=== PATIENT | female | born 1975 | race Caucasian/White ===

== ENCOUNTER 2019-07-26 05:25 | Inpatient (IN) ==
--- NOTE | 2019-07-16 12:52 | Communication Note ---
Date of Service: July 16, 2019 I called the patient to discuss her concerns regarding COVID testing and upcoming surgery. She did not answer the telephone. I left a message and call back number on the voicemail.
--- NOTE | 2019-07-16 14:55 | PAT Medication Instructions ---
Medication Instructions Date of Service July 16, 2019 Home Medications cholecalciferol (vitamin D3) 50 mcg (2,000 unit) tablet 2,000 units PO QAM ibuprofen 800 mg PO TID PRN lisinopril 40 mg PO QAM omeprazole 20 mg PO QAM ASK your surgeon for instructions ibuprofen 800 mg PO TID PRN DO NOT take the morning of surgery cholecalciferol (vitamin D3) 50 mcg (2,000 unit) tablet 2,000 units PO QAM lisinopril 40 mg PO QAM Take morning of surgery With a small sip of water, OTHERWISE NOTHING TO EAT OR DRINK AFTER MIDNIGHT: omeprazole 20 mg PO QAM Other Notes If you have any questions please call us at [phone] or [phone] or [phone] or [phone]
--- NOTE | 2019-07-17 12:14 | Anesthesiology Consultation ---
Date of Service July 17, 2019 Assessment & Plan (1) Encounter for pre-operative examination: Chart Review Chart Review: Acceptable Risk for Surgery (pending 07/22 covid testing ) and Patient seen in Pre Admission Testing - Check BSG AM DOS Pt scheduled for Covid testing 07/22. Was working at [employer] (x 3-4 days) but will be off until after surgery. Educated patient on importance of quarantine and social distancing both personally and for household members from time of Covid test to surgery date Seen by PCP 07/17/19= Aware of upcoming surgery for adrenalectomy. Pt following with endocrine. Pt having increased anxiety- given Clonazepam PRN until after surgery. Teaching & Discussion Pre-Anesthesia Teaching/Discussion Notes: Instructed NPO after midnight before surgery,except medications with 15 cc of water. Medication instructions provided according to the PAT guidelines. History Surgery Operation Date: 07/26/19 07:30 Proposed Procedures p Right Robotic Adrenalectomy - Bart Cannon, DO Height/Weight Height: 5 ft 7.5 in Weight: 126.8 kg Allergies Allergy/AdvReac Type Severity Reaction Status Date / Time No Known Allergies Allergy Verified 07/17/19 09:35 Medications Home Medications Medication Instructions Recorded Confirmed Last Taken cholecalciferol (vitamin D3) 50 2,000 units PO QAM 02/12/19 07/17/19 Unknown mcg (2,000 unit) tablet ibuprofen 800 mg PO TID PRN 07/11/19 07/17/19 Unknown lisinopril 40 mg PO QAM 07/11/19 07/17/19 Unknown omeprazole 20 mg PO QAM 07/11/19 07/17/19 Unknown clonazepam 0.5 mg tablet 0.5 mg PO BID #60 tab 07/17/19 07/17/19 Unknown Past Medical History Medical History Adrenal adenoma 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- getting 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 preop- endocri nologist is arranging with surgeon Anxiety Arthritis Diabetes Stable and controlled- sugars can fluctuate- unsure if due to adrenal gland GERD (gastroesophageal reflux disease) Stable and controlled Herniated lumbar intervertebral disc L4 and L5- chronic back pain - getting epidural injection on 07/19 Hypertension Exercise / Class Metabolic Activity II 4-5 Yardwork/Stairs/Walk up hill (one flight stairs- no chest pain or SOB ) Past Family History Family History Father Diabetes Hypertension Grandfather (Paternal) Diabetes Hypertension Grandmother (Paternal) Diabetes Aunt Breast cancer Other Heart disease Denies family history of Ovarian cancer Prostate cancer Myocardial infarction Lung cancer Colorectal cancer Stroke Past Surgical History Surgical History H/O: hysterectomy OVARIES REMAIN Hx of tonsillectomy S/P cholecystectomy Past Anesthesia History No Hx of Anesthesia Complications and No Family Hx of Anesthesia Complications History of PONV No Hx of PONV and No Hx of Motion Sickness Social History Smoking Status: Former smoker tobacco type: cigarettes Do You Dip or Chew Tobacco: No Smoking End Date: QUIT 2 YRS AGO Hx Alcohol Use: Yes Alcohol type: hard liquor alcohol intake frequency: holidays/special occasions only Hx Substance Use: No Review of Systems Patient denies chest pain, shortness of breath, dyspnea on exertion, cough, wheezing, palpitations. No hx of seizures, stroke, HI, apnea/snoring. No hx of blood clots or blood transfusions Physical Exam Vital Signs VITALS BP 119/78 P 100 TEMP 98.2 SP02 96% RESP 16 Constitutional + morbidly obese; no acute distress ENMT Mouth: no TMJ clicking Thyromental Distance: > or= 3.5 Finger Breadths (3.5) Mallampati Class: I Missing molars Capped bottom left molar Neck + thick neck; neck extension not limited Respiratory normal respiratory effort; no respiratory distress Auscultation: lungs clear to auscultation bilaterally; no wheezes Cardiovascular Rate/Rhythm: regular rate and regular rhythm Heart Sounds: no murmur Vessels: no carotid bruit Musculoskeletal Spine: no pain with cervical ROM Neurologic moves all extremities Psychiatric Orientation: alert Testing Laboratory Results 07/17/19 11:55 07/17/19 11:55 Urine Color Yellow 07/17/19 11:55 Urine Appearance Clear (Clear) 07/17/19 11:55 Urine pH 5.0 (4.5-7.5) 07/17/19 11:55 Ur Specific [place] 1.026 (1.000-1.030) 07/17/19 11:55 Urine Protein Negative (Negative) 07/17/19 11:55 Urine Glucose (UA) 2+ (Negative) H 07/17/19 11:55 Urine Ketones Negative (Negative) 07/17/19 11:55 Urine Nitrite Negative (Negative) 07/17/19 11:55 Ur Leukocyte Esterase Negative (Negative) 07/17/19 11:55 Blood Type O Positive 07/17/19 11:55 Antibody Screen NEGATIVE 07/17/19 11:55 Electrocardiogram Date: 02/12/19 SR at 65 bpm. Possible septal infarct (had subsequent negative stress test) Chest X-Ray Date: 07/17/19 Findings: + NAD Stress Test Date: 03/20/19 Type: DSE Resting EF: 55.8% Resting LV Function: normal Resting RWMA: + none Valvular Disease: no significant valvular disease Negative DSE and EKG for myocardiac ischemia at 89% MPHR.
--- NOTE | 2019-07-17 12:35 | XRay Report ---
XR chest Pre-admission PA/Lat CLINICAL HISTORY: Preoperative chest COMPARISON STUDY: No previous studies for comparison. FINDINGS: The cardiac and mediastinal contours are normal. There is no evidence of focal pulmonary co nsolidation. There is no evidence of failure. No pleural effusions are visualized.[ IMPRESSION: No active disease in the chest. ACT 112: Negative or not required by law. Electronically signed by: Juan Harmon M.D. 07/17/2019 12:34 PM
[2019-07-17 13:47] LABS: Basophils # (auto) 0.02 K/uL (0-0.2); Basophils % (auto) 0.3 %; Eosinophils # (auto) 0.02 K/uL (0-0.5); Eosinophils % (auto) 0.3 %; Hematocrit (blood only) 42.6 % (37-47); Hemoglobin 14.5 g/dL (12.0-16.0); Immature Granulocytes # (auto) 0.01 K/uL (0.00-0.02); Immature Granulocytes % (auto) 0.1 %; Lymphocytes # (auto) 2.45 K/uL (1.2-3.4); Lymphocytes % (auto) 34.1 %; Mean Corpuscular Hemoglobin 29.8 pg (25-34); Mean Corpuscular Volume 87.7 fL (80-100); Mean Platelet Volume 11.5 fL (7.4-10.4); Monocytes # (auto) 0.47 K/uL (0.11-0.59); Monocytes % (auto) 6.5 %; Neutrophils # (auto) 4.21 K/uL (1.4-6.5); Neutrophils % (auto) 58.7 %; Platelet Count 293 K/uL (130-400); RDW Coefficient of Variation 13.4 % (11.5-14.5); RDW Standard Deviation 42.9 fL (36.4-46.3); Red Blood Count 4.86 M/uL (4.2-5.4); White Blood Count 7.18 K/uL (4.8-10.8)
[2019-07-17 14:03] LABS: BUN Creatinine Ratio 15.5 (10-20); Calcium 9.1 mg/dl (8.5-10.1); Creatinine Clr Calc Pharmacy 125.7 ml/min; Est GFR (African American) 105.7; Est GFR (Non-African American) 91.2; Potassium 3.8 mmol/L (3.5-5.1)
[2019-07-17 14:30] LABS: Appearance Urine Clear (Clear); Bilirubin Urine Negative (Negative); Blood Urine Negative (Negative); Color Urine Yellow; Glucose Urine UA 2+ (Negative); Ketones Urine Negative (Negative); Leukocyte Esterase Urine Negative (Negative); Nitrite Urine Negative (Negative); Protein Urine Negative (Negative); Specific Gravity Urine 1.026 (1.000-1.030); Urobilinogen Urine Negative (Negative)
[2019-07-26] MEDS ORDERED: LR 15ML/HR IV SCH (06:00)
[2019-07-26] MEDS ORDERED: CEFAZOLIN 3000MG 72.5 ML IV SCH (06:00)
[2019-07-26] MEDS ORDERED: HYDROmorphone INJ 2 MG/ML SYR/VIAL ONE (06:34)
[2019-07-26] MEDS ORDERED: MIDAZOLAM HCL 1 MG/ML 2ML VIAL ONE (06:34)
[2019-07-26] MEDS ORDERED: fentaNYL citrate 100 MCG/2 ML VIAL ONE ×2 (06:34→11:57)
[2019-07-26] MEDS ORDERED: BUPIVACAINE 0.5 % 5 MG/1 ML MPF 30ML VIAL ONE (07:03)
--- NOTE | 2019-07-26 07:09 | History & Physical Bridge Note ---
Date of Service July 26, 2019 History & Physical Bridge Note I have examined the patient, reviewed the History & Physical and in the interval since the performance of the History & Physical I have noted the following changes of clinical significance: no changes noted
[2019-07-26] MEDS ORDERED: ONDANSETRON INJ 2 MG/ML 2 ML VIAL ONE (08:41)
[2019-07-26] MEDS ORDERED: ROCURONIUM BROMIDE 10 MG/ML 5 ML VIAL IV ONE ×2 (08:41→09:43)
[2019-07-26] MEDS ORDERED: HYDROCORTISONE SOD SUCCINATE 100 MG/2 ML VIAL ONE (08:41)
[2019-07-26] MEDS ORDERED: LIDOCAINE HCL 2% 2 ML VIAL/AMP(20MG/ML) INFIL ONE (08:41)
[2019-07-26] MEDS ORDERED: PROPOFOL IV EMULSION 10 MG/ML 20 ML VIAL IV ONE (08:41)
[2019-07-26] MEDS ORDERED: LABETALOL HCL IV 5 MG/ML 20ML IV ONE (08:56)
[2019-07-26] MEDS ORDERED: ALBUMIN HUMAN 5% 12.5 GM/250 ML VIAL IV ONE (09:04)
[2019-07-26] MEDS ORDERED: ACETAMINOPHEN 1000 MG/100 ML IV IV ONE (09:04)
[2019-07-26] MEDS ORDERED: SUGAMMADEX SODIUM 200 MG/2 ML VIAL IV ONE (09:04)
[2019-07-26] MEDS ORDERED: TISSEEL FIBRIN SEALANT 10ML TOP ONE (09:32)
[2019-07-26] MEDS ORDERED: ESMOLOL HCL INJ 10 MG/ML 10ML VIAL IV ONE (09:33)
[2019-07-26] MEDS ORDERED: SURGICEL ABSORB HEMOSTAT 2IN X 14IN TOP ONE ×2 (11:11)
[2019-07-26] MEDS ORDERED: SURGICEL FIBRILLAR HEMOSTAT 1 X 2IN TOP ONE (11:14)
[2019-07-26] MEDS ORDERED: FLOSEAL HEMOSTATIC MATRIX 10ML TOP ONE (11:19)
--- NOTE | 2019-07-26 12:50 | Post Operative Brief Note ---
PG Immediate Post Op with CF Date of Surgery July 26, 2019 Pre & Post Diagnosis Operation Date: 07/26/19 07:30 Pre-Op Diagnosis: Adrenal Adenoma Post-Op Diagnosis: Adrenal Adenoma I identified the patient and participated in the time-out.: Yes Procedure Operation Date: 07/26/19 07:30 Actual Procedures p Right Robotic Assisted Laparoscopic Adrenalectomy with extensive lysis of adhesions(Not Applicable) - Bart Cannon DO Surgeon Bart Cannon, II, DO Data Warehouse Specialist Edd Estimated Blood Loss 650 Findings Consistent with Post-Op Diagnosis Specimens Specimen Description: A. Right Adrenal Gland and adenoma Drains Altamirano Catheter (18 Fr. altamirano catheter inserted by MEGAN Hoang without difficulty. Draining clear yellow urine. Anesthesia to monitor urine output. ) and Uday-Parada Drain (10mm Flat) Anesthesia Type General Complications none Disposition Disposition: Recovery Room Overlapping Procedure I was present for: the critical portions of procedure. I was immediately available: during the entire case. Back up surgeon: was not required during procedure.
[2019-07-26] MEDS ORDERED: ePHEDrine sulfate 50 MG/ML AMP IV PRN (13:07)
[2019-07-26] MEDS ORDERED: ONDANSETRON INJ 2 MG/ML 2 ML VIAL IV PRN ×2 (13:07→18:37)
[2019-07-26] MEDS ORDERED: HYDROmorphone INJ 2 MG/ML SYR/VIAL IV PRN ×2 (13:07→14:32)
[2019-07-26] MEDS ORDERED: PROMETHAZINE HCL 12.5 MG in SODIUM CHLORIDE 0.9% 50 ML IV PRN (13:07)
[2019-07-26] MEDS ORDERED: ATROPINE SULFATE 0.1 MG/ML 10ML SYR IV PRN (13:07)
--- NOTE | 2019-07-26 13:07 | Procedure Note ---
Procedure Note Date of Service July 26, 2019 Radial arterial line placed in left wrist after induction in preparation for adrenelectomy with Dr. Cannon. Left wrist prepped with chlorhexidine and draped with sterile towels. 20 G angiocath placed under sterile technique utilizing sterile gloves, surgical hats and masks. Catheter threaded using seldinger technique with return of pulsatile, bright red blood. Site covered with occlusive dressing and taped in place. Waveform consistent with correct arterial placement. After placement, fingers of procedural hand had normal perfusion. Patient tolerated procedure well without complications. Talia placed by KEVIN Lawson under my direct supervision. Yareli Smith MD, PhD Anesthesiologist Coding
--- NOTE | 2019-07-26 13:34 | Operative Report ---
PG Post Operative Report Pre & Post Diagnosis Operation Date: 07/26/19 07:30 Pre-Op Diagnosis: Adrenal Adenoma Post-Op Diagnosis: Adrenal Adenoma I identified the patient and participated in the time-out.: Yes Procedure Operation Date: 07/26/19 07:30 Actual Procedures p Right Robotic Assisted Laparoscopic Adrenalectomy with extensive lysis of adhesions - Bart Cannon DO Surgeon Bart Cannon, II, DO French Drawer HUMA Puga Estimated Blood Loss 650 Findings Consistent with Post-Op Diagnosis Multiple significant adhesions to liver. Very large mass anterior on the adrenal gland on right Specimens Right adrenal gland with adenoma Drains 9 Fr Rolando drain 18 Fr Guzman Anesthesia Type General Complications none Disposition Disposition: Recovery Room Indications Patient with adenoma of the adrenal gland. Patient underwent workup for functional status. Patient was specifically worked up for pheochromocytoma. Risks and benefits discussed at length. Description of Procedure The patient was brought to the operative suite and placed under general endotracheal intubation anesthesia in the supine position. The patient was transferred to lateral position with the right flank exposed. The patient was placed into a flex'ed position and then placed into mild reverse Trendelenberg. At this point, the patient prepped and draped in the usual sterile fashion and a timeout was completed. Preoperative weight based antibiotics had been given. SHANTELLE's and SCD's were placed on the patient's lower extremities. A catheter was placed by nursing using sterile technique. With the time out completed the patient was flexed and the skin was marked. The lateral port site was anesthetized. A small incision was made into the skin and subcutaneous tissues. A Varess needle was selected and placed. The needle was easily moved and it was irrigated and aspirated without any issues or concerns for placement. Insufflation commenced. Once insufflated, the lateral edge of the rectus sheath was marked and anesthetized. The skin was incised and a camera port was placed. The cavity was insufflated to 15 mmHG. The laparoscopic camera was placed and the abdominal cavity inspected. No concerning features were noted. At this point, the skin was marked for port placement and 8mm working ports were placed. The skin was anesthetized down to fascia and an approx 1cm incision was made to place the 2 x 8mm ports. A 10mm and 5 mm assistant womens volleyball coach ports were also placed in similar fashion under direct visualization. The robot was positioned and docked. The camera was placed and all trocars were positioned under direct visualization. Melissa Puga was integral in port placement, camera utilization, and docking procedure. She remained in sterile attire and then proceeded to assist the remainder of the case. At this point, I transitioned to the robotic console. The patient had severe a dhesions throughout the upper quadrant especially off of the liver which was also found to be large and obscuring. These adhesions required significant time to lyse and release. Some tears in the capsule were noted due to the adhesions. Approximately 40 minutes were required in order to adequately free all of these adhesions and then place a retractor to help hold the liver. The colon was mobilized medially to expose the retroperitoneum and the area assessed. Adhesions were freed to allow mobilization. A small amount of adhesions were noted from the colon and were freed. These were dissected with blunt technique. Cautery was used to assist dissection and control bleeding. The retroperitoneal fat was assessed. The adenoma as well as the IVC was identified. Care was taken to dissect down near the IVC. This was then followed superiorly. Dissection stayed toward the midline along the IVC and the ureter and gonadal vein were avoided. The dissection was followed to the renal pelvis. The Renal Vein was identified and exposed. Dissection was taken further superior. The adenoma began to limit dissection. This was then mobilized and care was taken to slowly dissect between the adenoma/adrenal gland and the IVC. The Adrenal vein was identified. Two hemolock clips were used to clamp the vein. No changes in heart rate or blood pressure occurred with placement of the clips. The vein was then transected. The adrenal gland with the large adenoma was then slowly dissected. Small vessels were ligated and cut as dissection progressed. The posterior, inferior, and superior surfaces were dissected free. No major bleeding or other issues. The specimen was placed into a catch bag and set to the side. Surgicel hemostatic agent sheets were placed under the liver and on the incised edge. Hemostatic agents Tisseel and Floseal were also placed. Hemostatic agent was also placed on the IVC and the vein stump. No major bleeding or other issues. A Flat drain was placed through the lateral robot arm and the port was removed. It was positioned in the gutter lateral to the liver and colon. This was secured with a silk 1-0 suture. The entire dissection space was inspected one final time. No bleeding or injuries or areas of concern were noted. No tumor or other concerning features were noted. The kidney appeared to be without injury or area of concern. At this point, the robot was undocked and moved away from the patient. The port sites were all assessed laparoscopically. The endoscopic bag was moved into the perimedian port. The 10mm port site was closed with the Davie Luke device and a 1-0 Vicryl suture. The other ports were assessed and no issues observed. The perimedian incision was opened further exposing fascia which was then opened in order to removed the mass within the bag. A running 1-0 Vicryl suture was used to close fascia. The skin at each site was closed with a stapling device. The area was cleaned and bandage placed on each incision. The patient was cleaned and bandaged. He was moved back into the supine position The patient was cleaned, aroused from anesthesia, and transferred to the pacu in stable condition having tolerated the procedure well with no complications. I was present and participated in all aspects of the procedure. HUMA Valdez was critical in the portions as mentioned above. I attest to the content of the Intraoperative Record and any orders documented therein. Any exceptions are noted below.
[2019-07-26] MEDS: fentaNYL citrate 100 MCG/2 ML VIAL IV PRN ×2 (13:40→13:45)
--- NOTE | 2019-07-26 14:23 | Anesthesiology Progress Note ---
Date of Service July 26, 2019 Anesthesia Post Procedure Vital Signs Vital Signs: Temp Pulse Pulse Resp BP BP Pulse Ox 07/26/19 14:15 88 16 144/96 H 97 07/26/19 14:05 75 14 164/88 H 97 07/26/19 13:55 36.7 C 79 12 145/88 H 98 07/26/19 13:45 83 18 144/90 H 93 07/26/19 13:35 89 14 148/91 H 94 07/26/19 13:25 92 H 15 137/85 94 07/26/19 13:15 102 H 18 153/101 H 95 07/26/19 13:08 36.1 C L 107 H 22 172/133 H 99 07/26/19 05:48 36.8 C 94 H 20 120/89 97 Pain Intensity Right Abdomen: Pain Intensity: 5 Transfer of Care Handoff Completed per policy Notes Mental Status: alert / awake / arousable and participated in evaluation Patient Amnestic to Procedure: Yes Nausea / Vomiting: adequately controlled Pain: adequately controlled Airway Patency, RR, SpO2: stable & adequate BP & HR: stable & adequate Hydration State: stable & adequate Anesthetic Complications: no major complications apparent and Pt Satisfied with anesthetic care
[2019-07-26] MEDS ORDERED: HYDROmorphone INJ 0.5 MG/0.5 ML SYR ONE (14:32)
[2019-07-26] MEDS ORDERED: HYDROmorphone INJ 1 MG/ML SYRINGE ONE (14:33)
[2019-07-26] MEDS ORDERED: SCOPOLAMINE 1.5 MG TDSY TD ONE ×2 (14:53→14:54)
[2019-07-26] MEDS ORDERED: HYDROCORTISONE SOD SUCCINATE 100 MG/2 ML VIAL IM ONE (15:26)
[2019-07-26] MEDS ORDERED: HYDROCORTISONE SOD 100 MG in SYRINGE 0 ML IV STA (15:32)
[2019-07-26 16:00] LABS: Basophils # (auto) 0.01 K/uL (0-0.2); Hematocrit (blood only) 41.2 % (37-47); Hemoglobin 13.6 g/dL (12.0-16.0); Immature Granulocytes # (auto) 0.07 K/uL (0.00-0.02); Immature Granulocytes % (auto) 0.3 %; Lymphocytes # (auto) 1.86 K/uL (1.2-3.4); Lymphocytes % (auto) 8.5 %; Mean Corpuscular Hemoglobin 29.3 pg (25-34); Mean Corpuscular Volume 88.8 fL (80-100); Mean Platelet Volume 11.3 fL (7.4-10.4); Monocytes # (auto) 1.32 K/uL (0.11-0.59); Monocytes % (auto) 6.1 %; Neutrophils # (auto) 18.51 K/uL (1.4-6.5); Neutrophils % (auto) 85.1 %; Platelet Count 255 K/uL (130-400); RDW Coefficient of Variation 13.3 % (11.5-14.5); RDW Standard Deviation 43.3 fL (36.4-46.3); Red Blood Count 4.64 M/uL (4.2-5.4); White Blood Count 21.77 K/uL (4.8-10.8)
--- NOTE | 2019-07-26 16:10 | Hospitalist Consultation ---
Date of Consultation July 26, 2019 Assessment & Plan (1) Adrenal adenoma: -S/p adrenalectomy by Dr. Cannon -Pain management, bowel regimen and DVT ppx per the primary team -Follow am CBC and BMP levels, maintain Altamirano catheter, draining clear yellow urine -Allow clear liquid diet, currently nauseous, anti-emetics, advance per primary team -Given hydrocortisone 4 mg prior to surgery -Continue D5W and 1/2 NSS +20 MEQ KCl (2) HTN (hypertension): -Hold lisinopril, monitor BP (3) Diabetes: -Last A1c was 6.4 on 02/10/2019, recheck with a.m. labs, follow glucose with bmp (4) GERD (gastroesophageal reflux disease): -Continue omeprazole 20 mg daily (5) Morbid obesity: -BMI = 42.8, diet and exercise to be encouraged prior to discharge (6) Anxiety: -May continue clonazepam 0.5 mg twice daily as needed (7) Vitamin D deficiency: -Continue supplementation 2000 U daily (8) DVT prophylaxis: - teds, scds CODE: Full code Dispo: From home, likely to remain in the hospital x 1-2 days Thank you for involving us in the care of Michael. If you have any questions or concerns please do not hesitate to call. Medicine will follow along. (9) Herniated lumbar intervertebral disc: Supervising Physician Co-Signing Physician Notes Attending Attestation & Consult Note: PT seen/examined, chart reviewed, care plan d/w MARIA LUZ Thorne. I agree w/ the erwin components of her documentation. 44yo female with DM, morbid obesity, right-sided adrenal adenoma. Underwent robotically assisted right adrenalectomy today. 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 He recommended 100mg of hydrocortisone pre-op, followed by 50mg IV q8h x 3 doses, then transition to 20mg qam and 10mg qafternoon at discharge with f/u with him in 1 week. During my rounds she c/o hot flashes, nausea, and emesis. Having post-op pain on right. 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 Cannon Attending Physician: Bart Cannon, II, DO History of Present Illness This is a 44-year-old female with past medical history of adrenal adenoma, DM type II, GERD, herniated lumbar disks, L4-L5 s/p epidural injections, HTN, vitamin D deficiency, anxiety, morbid obesity with BMI of 42.8, who underwent elective right robotic adrenalectomy by Dr. Cannon on 07/26/2019. The pt was seen and examined, she is very tired after surgery, does not know when about she came up from the PACU, and feels nauseous if she moves. She attempted eating an ice chip and also became nauseous, no vomiting. She reports having moderate pain in the R flank area, but that its ok without moving. She had her last BM this morning, which was loose in nature as she has been taking stool softeners prior to this. She denies any other acute complaints Allergies Allergy/AdvReac Type Severity Reaction Status Date / Time No Known Allergies Allergy Verified 07/26/19 05:52 Home Medications Home Medications Medication Instructions Recorded Confirmed Type cholecalciferol (vitamin D3) 50 2,000 units PO QAM 02/12/19 07/26/19 History mcg (2,000 unit) tablet ibuprofen 800 mg PO TID PRN 07/11/19 07/26/19 History lisinopril 40 mg PO QAM 07/11/19 07/26/19 History omeprazole 20 mg PO QAM 07/11/19 07/26/19 History clonazepam 0.5 mg tablet 0.5 mg PO BID #60 tab 07/17/19 07/26/19 Rx Patient History Medical History Adrenal adenoma 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- getting 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- 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 installer is arranging with surgeon Anxiety Arthritis Diabetes Stable and controlled- sugars can fluctuate- unsure if due to adrenal gland GERD (gastroesophageal reflux disease) Stable and controlled Herniated lumbar intervertebral disc L4 and L5- chronic back pain - getting epidural injection on 07/19 Hypertension Surgical History H/O: hysterectomy OVARIES REMAIN Hx of tonsillectomy S/P cholecystectomy Family History Father Diabetes Hypertension Grandfather (Paternal) Diabetes Hypertension Grandmother (Paternal) Diabetes Aunt Breast cancer Other Heart disease Denies family history of Ovarian cancer Prostate cancer Myocardial infarction Lung cancer Colorectal cancer Stroke Social History Preferred Language: Macedonian Communication Ability: Effective Visual Impairment: No Limitations Hearing Ability: Normal 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 Beliefs That Will Affect Care: None marital status: Single Current Living Situation: Alone Current Living Situation Comment: self and 19 yr old son current occupational status: employed current occupation: [employer] Other Information That Helps Us Care for You: No Feels Safe at Home: Yes Safety Concerns: Feels Safe At This Time Smoking Status: Former smoker Tobacco Type: cigarettes ; packs per day: 1.5 ; Do You Dip or Chew Tobacco: No ; Smoking End Date: QUIT 2 YRS AGO ; Second Hand Exposure: Yes ( A CHILD) ; Hx Alcohol Use: Yes Alcohol type: hard liquor Alcohol Intake Frequency: Rarely Hx Substance Use: No Childhood Exposure to Second-Hand Smoke: Yes caffeine: Yes Dental Care, Regularly: Yes Physical Activity Frequency: 3-4 Times per Week Seatbelt Use: never Review of Systems Review of Systems: Constitutional: No fever, sweats or chills Eyes: No diplopia, no worsening or blurred vision ENT: normal hearing, no trouble swallowing Respiratory: No cough, sputum, dyspnea at rest or on exertion Cardiovascular: No chest pain, tightness or palpitations Abdomen: + R flank pain s/p surgery, +nausea, no vomiting, diarrhea or constipation Musculoskeletal: No joint pain, calf pain, swelling Neurologic: No weakness, numbness/tingling, or balance problems Psychiatric: No anxiety or depression Skin: No rash or itch Physical Exam Physical Exam: General: awake, alert to questions but tired, + groans occasionally due to pain, + morbidly obese Head: Normocephalic, atraumatic ENT: PERRL, EOMI, no pharyngeal exudate, mucous membranes moist Chest: Clear to auscultation, on room air, no adventitious breath sounds Cardiac: Regular rate and rhythm, no murmur, no JVD, normal peripheral pulses, good capillary refill Abdominal: NABS x 4 quadrants, soft, nondistended, nontender to palpation, no rebound, guarding or tenderness : altamirano cath draining clear yellow urine Extremities: Normal inspection, no peripheral edema or erythema, calfs nontender to palpation Psych: Normal mood and affect Neuro: AAO x 3, no gross motor deficits, speech is clear, no peripheral sensory deficits Results & Data Results & Data ([facility]) Vital Signs (Past 12 Hours) Vital Signs Temp Pulse Pulse Resp BP BP Pulse Ox 07/26/19 15:38 36.6 C 72 18 139/88 96 07/26/19 15:09 36.7 C 74 16 146/82 H 99 07/26/19 14:45 79 14 127/97 95 07/26/19 14:30 84 14 148/92 H 96 07/26/19 14:15 88 16 144/96 H 97 07/26/19 14:05 75 14 164/88 H 97 07/26/19 13:55 36.7 C 79 12 145/88 H 98 07/26/19 13:45 83 18 144/90 H 93 07/26/19 13:35 89 14 148/91 H 94 07/26/19 13:25 92 H 15 137/85 94 07/26/19 13:15 102 H 18 153/101 H 95 07/26/19 13:08 36.1 C L 107 H 22 172/133 H 99 07/26/19 05:48 36.8 C 94 H 20 120/89 97 PG Care Time/CCT Total # of Minutes Spent Total Time Spent with Patient: Total time spent is greater than 50% in coordination of care (as documented) at patient's floor/unit and/or counseling patient: Coding Level of Care Code 71759 Inpt Consult Level 3 Diagnoses Adrenal adenoma D35.00 HTN (hypertension) I10 Diabetes E11.9 GERD (gastroesophageal reflux disease) K21.9 Morbid obesity E66.01 Anxiety F41.9 Vitamin D deficiency E55.9 DVT prophylaxis Z29.9 Herniated lumbar intervertebral disc M51.26
[2019-07-26 16:19] LABS: BUN Creatinine Ratio 13.3 (10-20); Calcium 8.5 mg/dl (8.5-10.1); Creatinine Clr Calc Pharmacy 99.6 ml/min; Est GFR (African American) 80.2; Est GFR (Non-African American) 69.2
[2019-07-26] MEDS: D5W AND 1/2NSS + 20MEQ KCL 20 MEQ/1,000 ML BAG IV SCH (17:22)
[2019-07-26] MEDS: CEFAZOLIN 2000MG 2,000 MG/15 ML SYR IV SCH ×2 (17:22→23:30)
[2019-07-26] MEDS: clonazePAM 0.5 MG TAB PO SCH ×2 (17:22→20:51)
[2019-07-26] MEDS: CHECK SCOPOLAMINE PATCH PLACEMENT SCH (17:23)
[2019-07-26] MEDS ORDERED: ONDANSETRON 4 MG OD TAB PO PRN (18:38)
[2019-07-26] MEDS: MoRPHine SULFATE 2 MG/ML CARP IV PRN (20:50)
[2019-07-27] MEDS: CHECK SCOPOLAMINE PATCH PLACEMENT SCH ×2 (00:27→09:07)
[2019-07-27] MEDS: HYDROCORTISONE SOD 50 MG in SYRINGE 0 ML IV SCH ×3 (00:27→14:35)
[2019-07-27] MEDS ORDERED: GLUCAGON FOR INJ 1 MG VIAL SQ PRN (02:54)
[2019-07-27] MEDS ORDERED: CARBOHYDRATES FOR HYPOGLYCEMIA PO PRN (02:54)
[2019-07-27] MEDS ORDERED: DEXTROSE 50% 50 ML SYRINGE IV PRN (02:54)
[2019-07-27] MEDS ORDERED: GLUCOSE 10 TABS/TUBE PO PRN (02:54)
[2019-07-27] MEDS ORDERED: GLUCOSE 40% GEL 15 GM TUBE PO PRN (02:54)
[2019-07-27] MEDS: MoRPHine SULFATE 2 MG/ML CARP IV PRN (03:27)
[2019-07-27] MEDS ORDERED: PHARMACY GLYCEMIC MGMT CONSULT PRN (03:39)
[2019-07-27] MEDS: INSULIN ASPART 100 UNITS/ML 3 ML PEN SC SCH ×3 (05:57→12:12)
[2019-07-27] MEDS: D5W AND 1/2NSS + 20MEQ KCL 20 MEQ/1,000 ML BAG IV SCH (06:02)
[2019-07-27 06:57] LABS: Hematocrit (blood only) 36.9 % (37-47); Hemoglobin 12.6 g/dL (12.0-16.0); Mean Corpuscular Hemoglobin 29.6 pg (25-34); Mean Corpuscular Hgb Conc 34.1 g/dL (32-36); Mean Corpuscular Volume 86.8 fL (80-100); Mean Platelet Volume 11.1 fL (7.4-10.4); Platelet Count 260 K/uL (130-400); RDW Coefficient of Variation 13.5 % (11.5-14.5); RDW Standard Deviation 43.3 fL (36.4-46.3); Red Blood Count 4.25 M/uL (4.2-5.4); White Blood Count 11.18 K/uL (4.8-10.8)
[2019-07-27 06:58] LABS: Estimated Average Glucose 154 mg/dl
[2019-07-27 07:21] LABS: Albumin Level 3.2 gm/dl (3.4-5.0); BUN Creatinine Ratio 9.9 (10-20); Calcium 8.6 mg/dl (8.5-10.1); Creatinine Clr Calc Pharmacy 110.9 ml/min; Est GFR (African American) 91.3; Est GFR (Non-African American) 78.8; Potassium 4.3 mmol/L (3.5-5.1)
[2019-07-27 07:23] LABS: Albumin Globulin Ratio 0.9 (0.9-2); Bilirubin,Total 0.6 mg/dl (0.2-1); Globulin 3.7 gm/dl (2.5-4.0); Total Protein 6.9 gm/dl (6.4-8.2)
[2019-07-27] MEDS ORDERED: PANTOprazole 40 MG TAB PO SCH (09:00)
[2019-07-27] MEDS ORDERED: CHOLECALCIFEROL 1,000 UNITS 25 MCG TAB PO SCH (09:00)
[2019-07-27] MEDS: clonazePAM 0.5 MG TAB PO SCH (09:16)
[2019-07-27] MEDS: CEFAZOLIN 2000MG 2,000 MG/15 ML SYR IV SCH (09:16)
[2019-07-27] MEDS: OXYCODONE HCL IR 5 MG TAB (IMMEDIATE RELEASE) PO PRN ×3 (09:16→17:55)
[2019-07-27] MEDS ORDERED: SODIUM CHLOR 0.45% + 20MEQ KCL 20 MEQ/1,000 ML BAG IV SCH (10:00)
--- NOTE | 2019-07-27 12:29 | Hospitalist Progress Note ---
Date of Service July 27, 2019 Assessment & Plan (1) Adrenal adenoma: * POD #1 S/p RIGHT adrenalectomy by Dr. Cannon Pre-op h/h 13.6/41.2. EBL 650cc. [place] adenoma possibly related to an underlying Jocelyn's Dz * PT/OT/pain management/DVT prophylaxis as per primary service * 1 additional dose of hydrocortisone IV prior to discharge for total of three doses as rec'd by Dr. Madrigal --> to be discharged on hydrocortisone 20mg PO QAM, 10mg PO afternoon at discharge. Prescription sent. --> Discontinued D5 in IVF as patient receiving IV steroids and BSGs elevated. Pt req no insulin at this time * CBC stable at 12.6/36.9 -- likely combination of IVF and acute blood loss following surgery (2) HTN (hypertension): * Held lisinopril post-operatively --> to be resumed * BP 157/84 in setting of recent surgery (3) Diabetes: * Last A1c was 6.4 on 02/10/2019, recheck with a.m. labs, follow glucose with bmp * A1c up to 7.0 -- discussed with patient. Likely some component of recent steroids and injections but that she should follow up with Dr. Madrigal in the next week about further management/initiating Metformin/other * Pharmacy consulted for glycemic management while inpatient (4) GERD (gastroesophageal reflux disease): * Chronic. Continue omeprazole 20 mg daily (5) Morbid obesity: * BMI = 42.8, diet and exercise to be encouraged prior to discharge (6) Anxiety: * continue clonazepam 0.5 mg twice daily as needed (7) Vitamin D deficiency: * Continue supplementation 2000 U daily (8) Herniated lumbar intervertebral disc: (9) Elevated LFTs: * AST/ALT elevated at 210, 212. Tbili wnl at 0.6 (pt without GB and known hx hepatic steatosis). Alk phos wnl * Pt minimally tender RUQ, however on same side of surgery. * Follow up outpatient rec (10) DVT prophylaxis: - teds, scds Thank you for allowing the hospitalist service to participate in the care of Ms. Rodriguez. Medicine will sign off. Please reach out with any questions/concerns. Admission and Anticipated Discharge Date Admission Date: July 26, 2019 Supervising Physician Co-Signing Physician Notes PA Supervision Note: I did not personally see or examine the patient today, but I verified all erwin points of MARIA LUZ Ruffin's assessment and plan with the following exceptions/additions: Patient postop from adrenal adenoma resection. Plan is for discharge home today on p.o. hydrocortisone as outlined in plan above. Elevated LFTs likely just secondary to postoperative inflammation. Can be followed as an outpatient with PCP Subjective Patient evaluated this afternoon. Minimal pain at site of surgery, tolerable with pain medication. Has been passing gas but no bowel movement. Discussed daily miralax once discharged to help keep bowels regular while on pain medication. Patient denies any further nausea, and is feeling much improved compared to yesterday. Still with occasional flushing, but much less frequent. Eating/drinking without difficulty. Discussed elevated sugars and patient would like to avoid insulin while inpatient and follow up with Dr. Madrigal next week on the recommended hydrocortisone for follow up testing. Denies any fevers,chills, chest pain, shortness of breath, n/v/d, dysuria at this time. She states plan is to hopefully have her drain removed this afternoon and to be discharged home with follow-up. Review of Systems Review of Systems: All systems reviewed & are unremarkable except as noted in HPI & below Physical Exam Constitutional: WD/WN, vitals as above + obese; no acute distress skin flushed Eyes: PERRL, conjunctivae normal, anicteric sclerae Neck: trachea midline, no thyromegaly Respiratory: normal respiratory effort, lungs clear to auscultation Auscultation: + diminished lung sounds (secondary to body habitus) Cardiovascular: Rate/Rhythm: regular rate and regular rhythm Vessels: no JVD Extremities: no edema Gastrointestinal (Abdomen): +BS 4 quadrants mild tenderness to palpation around surgical incision R abd, minimally tender RUQ dressing c/d/i EARNEST drain with scant bloody drainage Musculoskeletal: no cyanosis or clubbing, extremities motor strength 5/5 Skin: no rashes, warm and dry Neurologic: patellar DTR's 2+ bilat, sensation intact Psychiatric: A+Ox3, euthymic affect Lymphatic: no cervical or axillary lymphadenopathy Results & Data Results & Data ([facility]) Vital Signs (Past 12 Hours) Vital Signs Temp Pulse Resp BP BP Pulse Ox 07/27/19 07:42 36.7 C 66 16 157/84 H 97 07/27/19 03:52 36.9 C 92 H 14 137/88 97 Laboratory Results 07/27/19 07/27/19 07/27/19 Range/Units 06:40 06:40 06:40 WBC 11.18 H D (4.8-10.8) K/uL RBC 4.25 (4.2-5.4) M/uL Hgb 12.6 (12.0-16.0) g/dL Hct 36.9 L (37-47) % MCV 86.8 (80-100) fL MCH 29.6 (25-34) pg MCHC 34.1 (32-36) g/dL RDW Std Deviation 43.3 (36.4-46.3) fL RDW Coeff of Victoriano 13.5 (11.5-14.5) % Plt Count 260 (130-400) K/uL MPV 11.1 H (7.4-10.4) fL Immature Gran % (Auto) % Neut % (Auto) % Lymph % (Auto) % Hill % (Auto) % Eos % (Auto) % Baso % (Auto) % Immature Gran # (Auto) (0.00-0.02) K/uL Neut # (Auto) (1.4-6.5) K/uL Lymph # (Auto) (1.2-3.4) K/uL Hill # (Auto) (0.11-0.59) K/uL Eos # (Auto) (0-0.5) K/uL Baso # (Auto) (0-0.2) K/uL Sodium 134 L (136-145) mmol/L Potassium 4.3 (3.5-5.1) mmol/L Chloride 101 (98-107) mmol/L Carbon Dioxide 25 (21-32) mmol/L Anion Gap 8.0 (3-11) BUN 9 (7-18) mg/dl Creatinine 0.88 (0.6-1.2) mg/dl Est Cr Clr Drug Dosing 110.9 ml/min Est GFR ( Amer) 91.3 Est GFR (Non-Af Amer) 78.8 BUN/Creatinine Ratio 9.9 L (10-20) Glucose 189 H (70-99) mg/dl POC Glucose (70-99) mg/dl Estimat Average Glucose 154 mg/dl Hemoglobin A1c 7.0 H (4.5-5.6) % Calcium 8.6 (8.5-10.1) mg/dl Total Bilirubin 0.6 (0.2-1) mg/dl AST 210 H (15-37) U/L ALT 212 H (12-78) U/L Alkaline Phosphatase 67 (45-117) U/L Total Protein 6.9 (6.4-8.2) gm/dl Albumin 3.2 L (3.4-5.0) gm/dl Globulin 3.7 (2.5-4.0) gm/dl Albumin/Globulin Ratio 0.9 (0.9-2) 07/27/19 07/26/19 07/26/19 Range/Units 05:54 15:35 15:35 WBC 21.77 H (4.8-10.8) K/uL RBC 4.64 (4.2-5.4) M/uL Hgb 13.6 (12.0-16.0) g/dL Hct 41.2 (37-47) % MCV 88.8 (80-100) fL MCH 29.3 (25-34) pg MCHC 33.0 (32-36) g/dL RDW Std Deviation 43.3 (36.4-46.3) fL RDW Coeff of Victoriano 13.3 (11.5-14.5) % Plt Count 255 (130-400) K/uL MPV 11.3 H (7.4-10.4) fL Immature Gran % (Auto) 0.3 % Neut % (Auto) 85.1 % Lymph % (Auto) 8.5 % Hill % (Auto) 6.1 % Eos % (Auto) 0.0 % Baso % (Auto) 0.0 % Immature Gran # (Auto) 0.07 H (0.00-0.02) K/uL Neut # (Auto) 18.51 H (1.4-6.5) K/uL Lymph # (Auto) 1.86 (1.2-3.4) K/uL Hill # (Auto) 1.32 H (0.11-0.59) K/uL Eos # (Auto) 0.00 (0-0.5) K/uL Baso # (Auto) 0.01 (0-0.2) K/uL Sodium 134 L (136-145) mmol/L Potassium 5.0 (3.5-5.1) mmol/L Chloride 102 (98-107) mmol/L Carbon Dioxide 25 (21-32) mmol/L Anion Gap 7.0 (3-11) BUN 13 (7-18) mg/dl Creatinine 0.98 (0.6-1.2) mg/dl Est Cr Clr Drug Dosing 99.6 ml/min Est GFR ( Amer) 80.2 Est GFR (Non-Af Amer) 69.2 BUN/Creatinine Ratio 13.3 (10-20) Glucose 206 H (70-99) mg/dl POC Glucose 182 H (70-99) mg/dl Estimat Average Glucose mg/dl Hemoglobin A1c (4.5-5.6) % Calcium 8.5 (8.5-10.1) mg/dl Total Bilirubin (0.2-1) mg/dl AST (15-37) U/L ALT (12-78) U/L Alkaline Phosphatase (45-117) U/L Total Protein (6.4-8.2) gm/dl Albumin (3.4-5.0) gm/dl Globulin (2.5-4.0) gm/dl Albumin/Globulin Ratio (0.9-2) PG Care Time/CCT Total # of Minutes Spent Total Time Spent with Patient: Total time spent is greater than 50% in coordination of care (as documented) at patient's floor/unit and/or counseling patient: Coding Level of Care Code 15446 Subseq Hosp Care Lvl 3 Diagnoses Adrenal adenoma D35.00 HTN (hypertension) I10 Diabetes E11.9 GERD (gastroesophageal reflux disease) K21.9 Morbid obesity E66.01 Anxiety F41.9 Vitamin D deficiency E55.9 Herniated lumbar intervertebral disc M51.26 Elevated LFTs R79.89 DVT prophylaxis Z29.9
--- NOTE | 2019-07-27 12:58 | Urology Progress Note ---
Date of Service July 27, 2019 Assessment & Plan (1) Adrenal adenoma: POD 1 s/p Right Adrenalectomy Robotic Assisted. Had some nausea which improved over time. Had hot flashes. No severe issues. Labs have been okay. Tolerating catheter which will be removed now. Drain with scant fluid. Wound clean and intact. Patient doing well. Pain controlled. Plan to slowly increase activity and avoid strenuous activity until healed. Patient will monitor for fever, swelling, redness, or drainage. Will call if any problems. Increasing diet and activity. Discussed post op care. Subjective Postop from urologic surgery. Patient has been tolerating well, but is having some pain and discomfort. Incisions have been mild sore. Having some abdominal distension/gas pains. Has tolerated catheter. Has not had severe pain or uncontrollable pain. Patient has been ambulating. Has not had bowel movement or major change. No new nausea or vomiting. Had tolerated anesthesia without major problems Tolerated liquid diet postoperatively. Significant nausea last night better now. Had hot flashes with steriods. Review of Systems Review of Systems: All systems reviewed & are unremarkable except as noted in HPI & below Physical Exam Physical Exam: General: Alert in no acute distress. HEENT: Normocephalic Atraumatic. Inspection normal. Cranial Nerves 2-12 Grossly intact. Normal inspection of face. Normal inspection of neck. Psychologic: Normal affect. Respiratory: Nonlabored. No use of accessory muscles. No tachypnea or dyspnea. Cardiovascular: No tachycardia Skin: Espino and Dry. No rashes or visible lesions. Extremities/Lymphatics: No edema Abdomen: Appropriately tender. Mild distended. No rebound or guarding. Morbid Obesity Wound: Clean, dry, covered. Results & Data Vital Signs (Past 12 Hours) Vital Signs Temp Pulse Resp BP BP Pulse Ox 07/27/19 07:42 36.7 C 66 16 157/84 H 97 07/27/19 03:52 36.9 C 92 H 14 137/88 97 PG Care Time/CCT Total # of Minutes Spent Total Time Spent with Patient: Total time spent is greater than 50% in coordination of care (as documented) at patient's floor/unit and/or counseling patient: Coding Level of Care Code 76774 Subseq Hosp Care Lvl 3 Diagnoses Adrenal adenoma D35.00
--- NOTE | 2019-07-27 13:21 | Pharmacy Report ---
Glycemic Control Consultation - Date of Service July 27, 2019 - Scope Scope: Glycemic Pharmacist consulted for glycemic control and to write orders per [facility] inpatient glycemic control protocol. - Objective Weight: 125.8 kg Accuchecks BSG (last 24hrs): 07/26/19 07/26/19 07/27/19 13:15 15:35 05:54 Glucose 206 H POC Glucose 233 H 182 H 07/27/19 06:40 Glucose 189 H POC Glucose Laboratory Data (last 24hrs): 07/26/19 07/27/19 15:35 06:40 Potassium 5.0 4.3 Carbon Dioxide 25 25 Anion Gap 7.0 8.0 Creatinine 0.98 0.88 Est Cr Clr Drug Dosing 99.6 110.9 HbA1c: Hemoglobin A1c 7.0 % (4.5-5.6) H 07/27/19 06:40 - Recent Pertinent Medications Outpatient Anti-diabetic Regimen: * N/A * A1c = 7.0 % 07/26 Risk Factors for Insulin Resistance: * Steroids: hct 50 iv q 8 * Diet: yes - Assessment & Plan Assessment & Plan: ASSESSMENT: * 44 year old s/p adrenalectomy POD1. PMHx significant for htn, diabetes, GERD, obesity. Pharmacy consulted for glycemic management * BSG this AM elevated at 189 mg/dL - patient with hx of diabetes however not currently on anything at home. Unclear if adrenal issues related to BSGs. * Patient refusing insulin this morning and at lunch - BSG despite insulin refusal trending down to 154 mg/dL at lunch. Did speak with provider who was going to provide some education to patient about sometimes patients needing insulin if on steroids. * Will continue with novolog for now. PLAN FOR INPATIENT GLYCEMIC CONTROL: * Basal insulin * Lantus - hold / patient refusing * Bolus insulin * NovoLog per scale ACHS or Q6hrs while NPO * Goal Range: Low 120 mg/dL - High 160 mg/dL * Correction Factor: 30 mg/dL/unit * Nutritional / Prandial insulin per carb ratio of 1 unit per -- grams CHO consumed * Please note that the plan above was derived based on current level of insulin resistance and hospital stress. These recommendations are appropriate for inpatient admission only. Plan of care upon discharge will need to be reassessed to avoid potential outpatient hypo/hyperglycemia. Thank you.
[2019-07-27] MEDS ORDERED: PERCOCET 5/325MG HOMEPACK PO ONE (18:08)
== END 2019-07-27 19:44 | disposition home or self-care (01) | DRG 614 ==
LOC: 3N 05:25 → ASU 05:25 → OBSVTOIN 13:10

== ENCOUNTER 2022-11-18 08:27 | Inpatient (IN) ==
[2022-11-18] MEDS: SODIUM CHLORIDE 0.9% 1,000 ML IV SCH ×2 (09:54→16:57)
[2022-11-18 10:01] LABS: Basophils # (auto) 0.06 K/uL (0.00-0.20); Basophils % (auto) 0.5 %; Eosinophils # (auto) 0.03 K/uL (0.00-0.50); Eosinophils % (auto) 0.2 %; Hematocrit (blood only) 46.7 % (37.0-47.0); Hemoglobin 16.1 g/dl (12.0-16.0); Immature Granulocytes # (auto) 0.05 K/uL (0.01-0.20); Immature Granulocytes % (auto) 0.4 %; Lymphocytes # (auto) 3.42 K/uL (1.20-3.40); Lymphocytes % (auto) 26.4 %; Mean Corpuscular Hemoglobin 28.4 pg (25.0-34.0); Mean Corpuscular Hgb Conc 34.5 g/dL (32.0-36.0); Mean Corpuscular Volume 82.4 fL (80.0-100.0); Mean Platelet Volume 11.7 fL (9.4-12.4); Monocytes # (auto) 1.16 K/uL (0.11-0.59); Neutrophils # (auto) 8.24 K/uL (1.40-6.50); Neutrophils % (auto) 63.5 %; Platelet Count 282 K/uL (130-400); RDW Coefficient of Variation 12.6 % (11.5-14.5); Red Blood Count 5.67 M/uL (4.20-5.40); White Blood Count 12.96 K/ul (4.8-10.8)
[2022-11-18 10:07] LABS: Albumin Globulin Ratio 1.5 (0.9-2); Albumin Level 4.8 gm/dl (3.4-5.0); BUN Creatinine Ratio 13.7 (10-20); Bilirubin,Total 0.4 mg/dl (0.2-1.0); Calcium 10.8 mg/dl (8.6-10.3); Creatinine Clr Calc Pharmacy 34.1 ml/min; Est GFR (African American) 22.4 ml/min; Est GFR (Non-African American) 19.3 ml/min; Globulin 3.3 gm/dl (2.5-4.0); Total Protein 8.1 gm/dl (6.0-8.3)
[2022-11-18] MEDS ORDERED: SODIUM CHLORIDE 0.9% 500 ML IV ONE (10:10)
--- NOTE | 2022-11-18 10:33 | XRay Report ---
XR chest 1V portable HISTORY: dizzy COMPARISON: Chest 07/17/2019. FINDINGS: The lungs are clear. Cardiac silhouette is normal in size. No pleural effusions. No pneumot horax. IMPRESSION: No acute process. ACT 112: Negative or not required by law. Electronically signed by: Dale Ordonez M.D. 11/18/2022 10:32 AM
--- NOTE | 2022-11-18 10:47 | CT Scan Report ---
ABDOMEN AND PELVIS CT WITHOUT CONTRAST CT DOSE: 1465.17 mGy.cm HISTORY: Dizziness. Acute renal failure, h/o adrenal mass/resection, renal artery aneurysm TECHNIQUE: Multiaxial CT images of the abdomen and pelvis were performed without contrast. A dose lo wering technique was utilized adhering to the principles of ALARA. COMPARISON STUDY: Abdomen and pelvis CTA 02/13/2019. Abdominal MRI 02/22/2019. FINDINGS: The lung bases are clear. No pneumoperitoneum. No pneumatosis. No acute fractures. Mild hep atic steatosis again noted. Prior cholecystectomy. The right adrenal gland nodule seen on the prior s tudy has been resected in the interval. The unenhanced spleen, left adrenal gland, and pancreas are u nremarkable. No retroperitoneal lymphadenopathy. Normal caliber abdominal aorta. There is a 5 mm ston e within the right kidney. No left renal calculi. 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 There is mild fullness within the left renal collecting system without jeison hydronephrosis. The le ft ureter is normal in caliber. There are 2 punctate calcifications within the left deep pelvis on im age 89 which are close proximity to the distal left ureter but appear to represent phleboliths rathe r than distal ureteral stones. No right ureteral calculi. No right-sided hydronephrosis. No pelvic ly mphadenopathy or pelvic free fluid. Normal bladder. Prior hysterectomy. No bowel wall thickening or o bstruction. A few colonic diverticula. No evidence for acute diverticulitis. Normal appendix. IMPRESSION: 1. Right-sided nephrolithiasis. 2. Mild fullness within the left renal collecting system without hydronephrosis. There are 2 punctate calcifications within the left deep pelvis which are in close proximity to the distal left ureter bu t appear to represent phleboliths rather than distal ureteral stones. The left ureter is normal in co urse and caliber. 3. No bowel wall thickening or obstruction. 4. Normal appendix. 5. 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 6. Postoperative changes as described above. ACT 112: Negative or not required by law. Electronically signed by: Dale Ordonez M.D. 11/18/2022 10:45 AM
[2022-11-18 11:26] LABS: Appearance Urine Clear (Clear); Bilirubin Urine Negative (Negative); Blood Urine Trace (Negative); Color Urine Yellow; Epithelial Cell Urine Auto >30 /lpf (0-5); Glucose Urine UA 1+ (Negative); Ketones Urine Negative (Negative); Leukocyte Esterase Urine Negative (Negative); Nitrite Urine Negative (Negative); Protein Urine 1+ (Negative); RBC Urine Automated 0-4 /hpf (0-4); Specific Gravity Urine 1.009 (1.000-1.030); Urobilinogen Urine Negative (Negative); pH Urine 5.5 (4.5-7.5)
[2022-11-18] MEDS ORDERED: ONDANSETRON INJ 2 MG/ML 2 ML VIAL IV STA (11:27)
[2022-11-18 11:36] LABS: Mucus Urine Present (None Prsent)
[2022-11-18 11:37] LABS: Calcium Oxalate Crystals Urine Present (None Prsent)
[2022-11-18 11:38] LABS: Bacteria Urine Automated 1+ (Negative)
--- NOTE | 2022-11-18 12:37 | Emergency Department Note ---
Impression & Plan ROD (acute kidney injury), Hyponatremia ED Provider Note CHIEF COMPLAINT: Generalized fatigue, joint aches HISTORY OF PRESENT ILLNESS: This 47-year-old female patient with past medical history of partial adrenalectomy, right renal artery aneurysm, diabetes mellitus, lumbar disc disease, morbid obesity, GERD, anxiety, hypertension, hepatic steatosis and arthritis presents to the emergency department with complaints of 3 to 4 days of extreme fatigue. She states that she had an adrenalectomy several years, but only one adrenal gland was removed. They discovered a renal artery aneurysm on the right side at about the same time. She states it has been followed but has not changed significantly. The patient mentions that she had recently attempted to take metformin for diabetes but was unable to tolerate it. She did recently start Jardiance. She was evaluated by her primary care provider yesterday and additional blood work and referral to endocrine was made. She denies taking daily steroids, she has not had any recent fevers, cough or vomiting. She has been nauseated. 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 REVIEW OF SYSTEMS: A review of systems was performed with positives and pertinent negatives listed in the history of present illness. 10 systems were reviewed and are otherwise negative. ALLERGIES: see below MEDICATIONS: see below PMH: see below SOCIAL HISTORY: see below DDx: Adrenal insufficiency, viral infection, UTI, dehydration, electrolyte abnormality, medication effect, pneumonia, among others PHYSICAL EXAM: Vital signs reviewed. General: Well-appearing obese, 47-year-old female, in no significant distress HEENT: No scleral icterus, PERRLA, neck supple. Atraumatic. Cardiovascular: Regular rate and rhythm, no extra sounds. Pulmonary: Clear to auscultation bilaterally, normal work of breathing. Abdomen: Soft, obese, nontender, nondistended, positive bowel sounds. Musculoskeletal: Atraumatic, no peripheral edema. Neurologic: Patient awake alert and oriented x 3, moist mucous membranes Skin: Warm, dry, no rash EMERGENCY DEPARTMENT COURSE/MDM: This patient was evaluated and appeared to be in no significant distress. IV access was obtained and laboratory work was drawn. External medical records were reviewed. The patient was placed on the manager monitoring and noted to be in a normal sinus rhythm. She was hydrated with normal saline solution and given 4 mg of IV Zofran for nausea. Laboratory work reveals an acute renal insufficiency, hyponatremia and mild leukocytosis. CT imaging of the abdomen pelvis was performed and reveals right-sided nephrolithiasis, mild fullness of the left renal collecting system with no hydronephrosis. On further review of the patient's medical reconciliation, the patient has just started Jardiance for her diabetes. After consultation with clinical pharmacist, this medication is known to cause some renal insufficiency and hyponatremia. Patient's case was discussed with the hospitalist service to evaluate patient for admission and further management. MONITORING: An order for cardiac monitoring was placed and the patient is noted to be in a normal sinus rhythm at 81 beats per minute. RADIOLOGY: Chest x-ray to my interpretation is negative for focal infiltrate or failure. Otherwise defer to radiology's overread. CT scan of the abdomen pelvis per radiology reveals a right-sided nephrolithiasis, see final read below. Mild fullness within the left renal collecting system without hydronephrosis. There are 2 punctate calcifications within the left deep pelvis which are in close proximity to the distal left ureter but appear to represent phleboliths rather than distal ureteral stones. The left ureter is normal in course and caliber. EKG: To my interpretation reveals a normal sinus rhythm at 84 bpm. Left atrial enlargement with previous septal infarct. QTc of 420, no PVC, no PAC. No previous EKGs for comparison. 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- getting 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 preop- carpet installer helper is arranging with surgeon Anxiety Arthritis COVID-19 Elevated LFTs GERD (gastroesophageal reflux disease) Stable and controlled Herniated lumbar intervertebral disc L4 and L5- chronic back pain - getting epidural injection on 07/19 Hypertension Low back pain Sciatica Surgical History (Updated 11/17/22 @ 10:51 by HUMA Pop) H/O total adrenalectomy Right Side July 2019 H/O: hysterectomy OVARIES REMAIN No malignancy Hx of tonsillectomy S/P cholecystectomy Family History Father Diabetes Hypertension Grandfather (Paternal) Diabetes Hypertension Grandmother (Paternal) Diabetes Aunt Breast cancer Other Heart disease Denies family history of Ovarian cancer Prostate cancer Myocardial infarction Lung cancer Colorectal cancer Stroke Social History Smoking Status: Former smoker packs per day: 1.5; Second Hand Exposure: Yes ( A CHILD); Do You Dip or Chew Tobacco: No; Hx Alcohol Use: No Hx Substance Use: No Preferred Language: Maltese Communication Ability: Effective Visual Impairment: No Limitations Hearing Ability: Normal Manager Hair Required: No Beliefs That Will Affect Care: None marital status: Single Current Living Situation: Alone Current Living Situation Comment: self and 19 yr old son current occupational status: employed current occupation: [employer] Feels Safe at Home: Yes Childhood Exposure to Second-Hand Smoke: Yes Diet: regular caffeine: Yes Dental Care, Regularly: Yes Physical Activity Frequency: Daily Seatbelt Use: never Assistive Devices: None Allergies Allergies Allergy/AdvReac Type Severity Reaction Status Date / Time metformin AdvReac Intermediate Diarrhea Verified 11/17/22 10:26 acetaminophen [From Percocet] AdvReac Mild itching Verified 11/17/22 10:26 oxycodone [From Percocet] AdvReac Mild itching Verified 11/17/22 10:26 Home Meds Home Medications Medication Instructions Recorded Confirmed cholecalciferol (vitamin D3) 50 2,000 units PO QAM 02/12/19 11/18/22 mcg (2,000 unit) tablet hydrocortisone 10 mg tablet 2.5 mg .Route .COMPLEX PRN to have 11/11/20 11/18/22 enough cortisol atorvastatin 10 mg tablet 0 mg PO DAILY 11/18/22 11/18/22 omeprazole 20 mg capsule,delayed 20 mg PO QAM PRN Heartburn 11/18/22 11/18/22 release Previous Rx's Medication Instructions Recorded gabapentin 600 mg tablet 600 mg PO TID #90 tabs 08/04/22 lisinopril 40 mg tablet 40 mg PO QAM #90 tabs 10/20/22 ondansetron HCl 4 mg tablet 4 mg PO DAILY PRN nausea and 11/09/22 vomiting #90 tabs insulin glargine 100 unit/mL (3 10 - 50 unit (0.1 - 0.5 mL) subcut 11/17/22 mL) subcutaneous pen (Lantus DAILY #15 mL Solostar U-100 Insulin) pen needle, diabetic 32 gauge x #100 ea 11/17/22" (BD Ultra-Fine Nithya Pen Needle) amlodipine 2.5 mg tablet 2.5 mg PO PM #30 tabs 11/19/22 Results & Data (ED) Vital Signs Vital Signs - 24 hr 11/18/22 08:30 11/18/22 08:30 11/18/22 08:30 Temperature 37.1 C Temperature Source Oral Pulse Rate 90 Pulse Rate [Apical] Pulse Rhythm Respiratory Rate 18 18 Blood Pressure 116/75 Blood Pressure [Left Arm] Blood Pressure Mean 88 Blood Pressure Mean [Left Arm] Pulse Oximetry 95 Oxygen Delivery Method Room Air Sepsis Recent Fever Within 48 Hours No Sepsis New/Unexplained Change in Mental Status N/A Sepsis Action Taken by Nursing No Action Required 11/18/22 09:01 11/18/22 09:43 11/18/22 10:46 Temperature Temperature Source Pulse Rate 84 79 Pulse Rate [Apical] 79 Pulse Rhythm Regular Respiratory Rate 18 16 Blood Pressure Blood Pressure [Left Arm] 105/59 L Blood Pressure Mean Blood Pressure Mean [Left Arm] 74 Pulse Oximetry 97 98 Oxygen Delivery Method Room Air Sepsis Recent Fever Within 48 Hours Sepsis New/Unexplained Change in Mental Status Sepsis Action Taken by Assisted Medications Current Medication List: was personally reviewed by me Laboratory Data Attestation: I reviewed the patient's lab results. 11/18/22 09:00 11/18/22 09:00 Lab Results 11/18/22 11/18/22 11/18/22 Range/Units 09:00 09:00 09:00 WBC 12.96 H (4.8-10.8) K/ul RBC 5.67 H (4.20-5.40) M/uL Hgb 16.1 H (12.0-16.0) g/dl Hct 46.7 (37.0-47.0) % MCV 82.4 (80.0-100.0) fL MCH 28.4 (25.0-34.0) pg MCHC 34.5 (32.0-36.0) g/dL RDW Std Deviation 38.0 (36.4-46.3) fL RDW Coeff of Victoriano 12.6 (11.5-14.5) % Plt Count 282 (130-400) K/uL MPV 11.7 (9.4-12.4) fL Immature Gran % (Auto) 0.4 % Neut % (Auto) 63.5 % Lymph % (Auto) 26.4 % Pitt % (Auto) 9.0 % Eos % (Auto) 0.2 % Baso % (Auto) 0.5 % Neut # (Auto) 8.24 H (1.40-6.50) K/uL Lymph # (Auto) 3.42 H (1.20-3.40) K/uL Pitt # (Auto) 1.16 H (0.11-0.59) K/uL Eos # (Auto) 0.03 (0.00-0.50) K/uL Baso # (Auto) 0.06 (0.00-0.20) K/uL Immature Gran # (Auto) 0.05 (0.01-0.20) K/uL Sodium 130 L (136-145) mmol/L Potassium 4.0 (3.5-5.1) mmol/L Chloride 96 L (98-107) mmol/L Carbon Dioxide 22 (21-32) mmol/L Anion Gap 12 H (3-11) BUN 38 H (6-23) mg/dl Creatinine 2.77 H (0.6-1.2) mg/dl Est Cr Clr Drug Dosing 34.1 ml/min Est GFR ( Amer) 22.4 ml/min Est GFR (Non-Af Amer) 19.3 ml/min BUN/Creatinine Ratio 13.7 (10-20) Glucose 168 H (70-99(Fasting)) mg/dl Calcium 10.8 H (8.6-10.3) mg/dl Total Bilirubin 0.4 (0.2-1.0) mg/dl AST 40 H (13-39) U/L ALT 37 (7-52) U/L Alkaline Phosphatase 89 (34-104) U/L Troponin I High Sens 10.6 (0-14) pg/ml Total Protein 8.1 (6.0-8.3) gm/dl Albumin 4.8 (3.4-5.0) gm/dl Globulin 3.3 (2.5-4.0) gm/dl Albumin/Globulin Ratio 1.5 (0.9-2) Random Cortisol mcg/dl Urine Color Urine Appearance (Clear) Urine pH (4.5-7.5) Ur Specific [place] (1.000-1.030) Urine Protein (Negative) Urine Glucose (UA) (Negative) Urine Ketones (Negative) Urine Blood (Negative) Urine Nitrite (Negative) Urine Bilirubin (Negative) Urine Urobilinogen (Negative) Ur Leukocyte Esterase (Negative) Urine WBC (Auto) (0-5) /hpf Urine RBC (Auto) (0-4) /hpf U Hyaline Cast (Auto) (0-5) /lpf U Epithel Cells (Auto) (0-5) /lpf Urine Bacteria (Auto) (Negative) Ur Renal Epithelial Cell Calcium Oxalate Crystal (None Prsent) Urine Mucus (None Prsent) SARS-CoV-2 (PCR) (Negative) Influenza Type A (PCR) (Neg) Influenza Type B (PCR) (Neg) RSV (RT-PCR) (Neg) 11/18/22 11/18/22 11/18/22 Range/Units 09:00 11:10 11:54 WBC (4.8-10.8) K/ul RBC (4.20-5.40) M/uL Hgb (12.0-16.0) g/dl Hct (37.0-47.0) % MCV (80.0-100.0) fL MCH (25.0-34.0) pg MCHC (32.0-36.0) g/dL RDW Std Deviation (36.4-46.3) fL RDW Coeff of Victoriano (11.5-14.5) % Plt Count (130-400) K/uL MPV (9.4-12.4) fL Immature Gran % (Auto) % Neut % (Auto) % Lymph % (Auto) % Pitt % (Auto) % Eos % (Auto) % Baso % (Auto) % Neut # (Auto) (1.40-6.50) K/uL Lymph # (Auto) (1.20-3.40) K/uL Pitt # (Auto) (0.11-0.59) K/uL Eos # (Auto) (0.00-0.50) K/uL Baso # (Auto) (0.00-0.20) K/uL Immature Gran # (Auto) (0.01-0.20) K/uL Sodium (136-145) mmol/L Potassium (3.5-5.1) mmol/L Chloride (98-107) mmol/L Carbon Dioxide (21-32) mmol/L Anion Gap (3-11) BUN (6-23) mg/dl Creatinine (0.6-1.2) mg/dl Est Cr Clr Drug Dosing ml/min Est GFR ( Amer) ml/min Est GFR (Non-Af Amer) ml/min BUN/Creatinine Ratio (10-20) Glucose (70-99(Fasting)) mg/dl Calcium (8.6-10.3) mg/dl Total Bilirubin (0.2-1.0) mg/dl AST (13-39) U/L ALT (7-52) U/L Alkaline Phosphatase (34-104) U/L Troponin I High Sens (0-14) pg/ml Total Protein (6.0-8.3) gm/dl Albumin (3.4-5.0) gm/dl Globulin (2.5-4.0) gm/dl Albumin/Globulin Ratio (0.9-2) Random Cortisol 16.69 mcg/dl Urine Color Yellow Urine Appearance Clear (Clear) Urine pH 5.5 (4.5-7.5) Ur Specific [place] 1.009 (1.000-1.030) Urine Protein 1+ H (Negative) Urine Glucose (UA) 1+ H (Negative) Urine Ketones Negative (Negative) Urine Blood Trace H (Negative) Urine Nitrite Negative (Negative) Urine Bilirubin Negative (Negative) Urine Urobilinogen Negative (Negative) Ur Leukocyte Esterase Negative (Negative) Urine WBC (Auto) 1-5 (0-5) /hpf Urine RBC (Auto) 0-4 (0-4) /hpf U Hyaline Cast (Auto) 5-10 H (0-5) /lpf U Epithel Cells (Auto) >30 H (0-5) /lpf Urine Bacteria (Auto) 1+ H (Negative) Ur Renal Epithelial Cell Not Reportable Calcium Oxalate Crystal Present A (None Prsent) Urine Mucus Present A (None Prsent) SARS-CoV-2 (PCR) NEGATIVE (Negative) Influenza Type A (PCR) Negative (Neg) Influenza Type B (PCR) Negative (Neg) RSV (RT-PCR) Negative (Neg) Administered Medications Discontinued Medications Acetaminophen (Acetaminophen 325 Mg Tab) 650 mg PO Q4H PRN PRN Reason: pain/fever Stop: 12/18/22 13:04 Last Admin: 11/19/22 09:41 Dose: 650 mg Documented By: [place] Gabapentin (Gabapentin 300 Mg Cap) 300 mg PO TID RANDELL Stop: 12/18/22 20:59 Last Admin: 11/19/22 09:39 Dose: 300 mg Documented By: Admin: 11/18/22 20:16 Dose: 300 mg Documented By: ARIA Gabapentin (Gabapentin 300 Mg Cap) 300 mg PO NOW STA Stop: 11/18/22 15:16 Last Admin: 11/18/22 15:59 Dose: 300 mg Documented By: EVELYN Heparin Sodium (Porcine) (Heparin Sod 5,000 Unit/0.5 Ml Vial) 5,000 units SQ Q8 RANDELL Stop: 12/18/22 21:59 Last Admin: 11/19/22 05:58 Dose: 5,000 units Documented By: Admin: 11/18/22 21:23 Dose: 5,000 units Documented By: ARIA Heparin Sodium (Porcine) (Heparin Sod 5,000 Unit/0.5 Ml Vial) 5,000 units SQ NOW STA Stop: 11/18/22 15:17 Last Admin: 11/18/22 16:01 Dose: 5,000 units Documented By: EVELYN Sodium Chloride (Nss) 1,000 mls @ 125 mls/hr IV .Q8H RANDELL Stop: 12/18/22 09:44 Last Infusion: 11/19/22 12:38 Dose: 0 mls/hr Documented By: Admin: 11/19/22 09:08 Dose: 125 mls/hr Documented By: Infusion: 11/19/22 08:58 Dose: 125 mls/hr Documented By: Admin: 11/19/22 00:58 Dose: 125 mls/hr Documented By: Infusion: 11/19/22 00:57 Dose: 0 mls/hr Documented By: Admin: 11/18/22 16:57 Dose: 125 mls/hr Documented By: Infusion: 11/18/22 16:43 Dose: 0 mls/hr Documented By: Admin: 11/18/22 09:54 Dose: 125 mls/hr Documented By: BRYAN Sodium Chloride (Nss) 500 mls @ 999 mls/hr IV .Q31M ONE Stop: 11/18/22 10:40 Last Infusion: 11/18/22 11:08 Dose: 0 mls/hr Documented By: Admin: 11/18/22 10:20 Dose: 999 mls/hr Documented By: BRYAN Cosyntropin 250 mcg/ Syringe 5 mls @ 2.5 mls/min IV TODAY@0800 [facility]; Protocol Stop: 11/19/22 08:01 Last Admin: 11/19/22 08:33 Dose: 2.5 mls/min Documented By: [place] Insulin Aspart (Insulin Aspart Per Unit Charge) 0 units SC ACHS [facility]; Protocol Stop: 12/18/22 16:29 Last Admin: 11/19/22 12:35 Dose: 3 units Documented By: SHILPI Co-signed By: [place] Admin: 11/19/22 10:01 Dose: 11 units Documented By: SHILPI Co-signed By: [place] Admin: 11/18/22 20:19 Dose: Not Given Documented By: Admin: 11/18/22 17:24 Dose: 8 units Documented By: [place] Co-signed By: MANSI Insulin Glargine (Lantus Per Unit Charge) 15 units SQ ONE ONE; Protocol Stop: 11/18/22 15:01 Last Admin: 11/18/22 16:00 Dose: 15 units Documented By: EVELYN Co-signed By: MILVIA Insulin Glargine (Lantus Per Unit Charge) 15 units SC DAILY [facility] Stop: 12/19/22 11:29 Last Admin: 11/19/22 12:35 Dose: 15 units Documented By: SHILPI Co-signed By: [place] Ondansetron HCl (Ondansetron Inj 2 Mg/Ml 2 Ml Vial) 4 mg IV NOW STA Stop: 11/18/22 11:28 Last Admin: 11/18/22 11:52 Dose: 4 mg Documented By: EVELYN Ondansetron HCl (Ondansetron Inj 2 Mg/Ml 2 Ml Vial) 4 mg IV Q6H PRN PRN Reason: Nausea And Vomiting Stop: 12/19/22 01:52 Last Admin: 11/19/22 01:59 Dose: 4 mg Documented By: ARIA Imaging Data Radiologist's Impression: Chest X-Ray 11/18/22 09:43 XR chest 1V portable HISTORY: dizzy COMPARISON: Chest 07/17/2019. FINDINGS: The lungs are clear. Cardiac silhouette is normal in size. No pleural effusions. No pneumothorax. IMPRESSION: No acute process. ACT 112: Negative or not required by law. Electronically signed by: Dale Ordonez M.D. 11/18/2022 10:32 AM Abdomen/Pelvis CT 11/18/22 10:[address] WITHOUT CONTRAST CT DOSE: 1465.17 mGy.cm HISTORY: Dizziness. Acute renal failure, h/o adrenal mass/resection, renal artery aneurysm TECHNIQUE: Multiaxial CT images of the abdomen and pelvis were performed without contrast. A dose lowering technique was utilized adhering to the principles of ALARA. COMPARISON STUDY: Abdomen and pelvis CTA 02/13/2019. Abdominal MRI 02/22/2019. FINDINGS: The lung bases are clear. No pneumoperitoneum. No pneumatosis. No acut e fractures. Mild hepatic steatosis again noted. Prior cholecystectomy. The right adrenal gland nodule seen on the prior study has been resected in the interval. The unenhanced spleen, left adrenal gland, and pancreas are unremarkable. No retroperitoneal lymphadenopathy. Normal caliber abdominal aor ta. There is a 5 mm stone within the right kidney. No left renal calculi. 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 There is mild fullness within the left renal collecting system without jeison hydronephrosis. The left ureter is normal in caliber. There are 2 punctate calcifications within the left deep pelvis on image 89 which are close proximity to the distal left ureter but appear to represent phleboliths rather than distal ureteral stones. No right ureteral calculi. No right-sided hydronephrosis. No pelvic lymphadenopathy or pelvic free fluid. Normal bladder. Prior hysterectomy. No bowel wall thickening or obstruction. A few colonic diverticula. No evidence for acute diverticulitis. Normal appendix. IMPRESSION: 1. Right-sided nephrolithiasis. 2. Mild fullness within the left renal collecting system without hydronephrosis. There are 2 punctate calcifications within the left deep pelvis which are in close proximity to the distal left ureter but appear to represent phleboliths rather than distal ureteral stones. The left ureter is normal in course and caliber. 3. No bowel wall thickening or obstruction. 4. Normal appendix. 5. 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 6. Postoperative changes as described above. ACT 112: Negative or not required by law. Electronically signed by: Dale Ordonez M.D. 11/18/2022 10:45 AM Discharge Plan Visit Data Chief Complaint: Dizziness Stated Complaint: DOC REF,DRY HEAVING,DIZZY,FATIGUE,NAUSEA ED Provider: Nadja Baca Discharge Problem: ROD (acute kidney injury), Hyponatremia Patient Disposition: Admitted As Inpatient Discharge Instructions Interventions: ED Discharge Assessment Last Done: 11/18/22 16:21
--- NOTE | 2022-11-18 12:44 | History & Physical Report ---
Date of Service November 18, 2022 Assessment & Plan (1) Fatigue: Plan: Fatigue, nausea without vomiting Patient with recurrent episodes of around 3 days of nausea/fatigue every 6-8 weeks since having adrenalectomy 07/2019 She is pending follow-up with [facility] Endocr[facility]ology, has been taken off steroids in order to have an accurate stimulation test. Has not been on steroids in the last 3 years Poor intake, but no vomiting or diarrhea COVID is negative CT without acute pathology Cortisol is not suppressed Fluids, supportive care. Potassium is normal. Steroids deferred (2) ROD (acute kidney injury): Plan: ROD Stage 2 - Non-oliguric Baseline creatinine ~1, admitting creatinine 2.77 DDx includes prerenal, also recently started Jardiance which can be associated with ROD, although rise is fairly high for this. Does not appear hypovolemic, AI being evaluated as noted CTA/P without obvious intra-abdominal/renal pathology High-sensitivity troponin is normal EKG: Normal sinus rhythm, no acute ischemic changes Lisinopril held UA is contaminated appearing with 1+ bacteria, greater than 30 epithelial cells and no leukocyte esterase/nitrites. She has been peeing normally, little more since drinking a lot of water with her Jardiance but denies any dysuria or frequency outside of drinking water. Antibiotics deferred Discussed with nephrology. Agree with work-up as noted, fluids, and AI evaluation. protein/creatinine ratio is pending. Would not add any additional testing at this time, and if she uptrend tomorrow can place formal consult 11/19. (3) Diabetes mellitus: Plan: DM2 Intolerant of metformin due to GI symptoms - No jardiance since tuesday. D/cristiano - Bicarb wnl Home scaled glargine has not yet been taken, was just prescribed Weight-based basal bolus. Pharmacy glycemic consult placed due to concurrent ROD/altered clearance kinetics Goal BSG [id number] Glucose checks AC/at bedtime (4) History of total adrenalectomy: Plan: No longer on steroids for the last 2-3 years, random cortisol within normal range Potassium is normal, mildly hypotensive Stimulation test ordered for AM 11/19. Baseline a.m. cortisol @ 8am --> cosyntropin 250 mcg after draw --> and repeat serum cortisol at 30&60 minutes postinfusion. ACTH/renin/aldosterone morning levels added. N.p.o. at 10 PM 1012 in anticipation of morning stimulation test. - Continue [facility] Endocrine followup. [facility]. (5) Aneurysm of right renal artery: Plan: Stable, no change on repeat CT (6) GERD (gastroesophageal reflux disease): Plan: - No sx on admit. 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 endocrinology, agreeable to follow-up with [facility] Endocr[facility]ology. 11/17/2022 was seen by PCP. Patient was pending referral for cosyntropin test and endocrine follow-up, but was noted that she will need to be free of steroid injections and oral steroids. Plan DVT prophylaxis: Lovenox Diet: DM 2/low-salt Disposition: Medical surgical CODE STATUS: Full code History of Present Illness Primary Care Provider: Jd Fleming MD Yareli is a 47-year-old female with a past medical history of DM 2, Cus maribeth's, GERD, anxiety, hypertension, hepatic steatosis, right adrenal adenoma s/p surgical excision with benign pathology who presents to the ER with dizziness. Tue- felt severe fatigue. Adrenalectomy in 2019 and 'feels like that all over again like when my cortisol was low.' Has similar episodes of tiredness last few years which seem to go away within a day or so and drinking water. This time 'knocked me out for 3 days' and kidney numbers are up so came in. Worked last night and was increadibly fatigued. Peed 500cc urine early. Last 3 days has been peeing 'a lot, a lot more than normal. Been so thirsty been drinking a ton.' Was going to hold Jardiance and was going to start insulin today. Couldnt tolerate metformin due to stomach upset. No burning with urination. No fevers/chills/sweats No chest pain or chest pressure but did feel some slight palpitations last night which improved No vomiting, endorses nausea and mild dry heaves No diarrhea No leg swelling Last time she was on steroids was end of 2019, none in the last in 3 years. Was on hydrocortisone after adrenalectomy. Was going to start atorvastatin but has not yet, is currently on hold. Hydrocortisone 'hold' prescription remains on med list to keep providers aware of her history, but this has not been taken in almost 3 years. Pending enrollment with [facility] Endocrinology, has not seen yet. No cough, no shortness of breath Medical History: Reviewed Medications: Reviewed Surgical History: Reviewed Family history: Reviewed Allergies: Reviewed Social History: Former smoker, quit 6 years ago. No ETOH in 8 months, social drinker prior. Medical marijuana --> uses flower, no vaping. Uses for pain ~1x/week. NO hx of seizures Code Status: Full Code Allergies Allergy/AdvReac Type Severity Reaction Status Date / Time metformin AdvReac Intermediate Diarrhea Verified 11/17/22 10:26 acetaminophen [From Percocet] AdvReac Mild itching Verified 11/17/22 10:26 oxycodone [From Percocet] AdvReac Mild itching Verified 11/17/22 10:26 Home Medications Medication Instructions Recorded Confirmed Type cholecalciferol (vitamin D3) 50 2,000 units PO QAM 02/12/19 11/18/22 History mcg (2,000 unit) tablet hydrocortisone 10 mg tablet 2.5 mg .Route .COMPLEX PRN to have 11/11/20 11/18/22 History enough cortisol gabapentin 600 mg tablet 600 mg PO TID #90 tabs 08/04/22 11/18/22 Rx lisinopril 40 mg tablet 40 mg PO QAM #90 tabs 10/20/22 11/18/22 Rx ondansetron HCl 4 mg tablet 4 mg PO DAILY PRN nausea and 11/09/22 11/18/22 Rx vomiting #90 tabs insulin glargine 100 unit/mL (3 10 - 50 unit (0.1 - 0.5 mL) subcut 11/17/22 11/18/22 Rx mL) subcutaneous pen (Lantus DAILY #15 mL Solostar U-100 Insulin) pen needle, diabetic 32 gauge x #100 ea 11/17/22 Rx " (BD Ultra-Fine Nithya Pen Needle) atorvastatin 10 mg tablet 0 mg PO DAILY 11/18/22 11/18/22 History omeprazole 20 mg capsule,delayed 20 mg PO QAM PRN Heartburn 11/18/22 11/18/22 History release Past Med/Surg History Medical History (Updated 11/18/22 @ 13:11 by Manny Sesay MD) Adrenal adenoma 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- getting 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 preop- roofer helper is arranging with surgeon Anxiety Arthritis COVID-19 Elevated LFTs GERD (gastroesophageal reflux disease) Stable and controlled Herniated lumbar intervertebral disc L4 and L5- chronic back pain - getting epidural injection on 07/19 Hypertension Low back pain Sciatica Surgical History (Updated 11/17/22 @ 10:51 by HUMA Pop) H/O total adrenalectomy Right Side July 2019 H/O: hysterectomy OVARIES REMAIN No malignancy Hx of tonsillectomy S/P cholecystectomy Family History Father Diabetes Hypertension Grandfather (Paternal) Diabetes Hypertension Grandmother (Paternal) Diabetes Aunt Breast cancer Other Heart disease Denies family history of Ovarian cancer Prostate cancer Myocardial infarction Lung cancer Colorectal cancer Stroke Social History Smoking Status: Former smoker packs per day: 1.5; Second Hand Exposure: Yes ( A CHILD); Do You Dip or Chew Tobacco: No; Hx Alcohol Use: No Hx Substance Use: No Preferred Language: Malaysian Communication Ability: Effective Visual Impairment: No Limitations Hearing Ability: Normal 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 Required: No Beliefs That Will Affect Care: None marital status: Single Current Living Situation: Family Current Living Situation Comment: self and 19 yr old son current occupational status: employed current occupation: [employer] Feels Safe at Home: Yes Childhood Exposure to Second-Hand Smoke: Yes Diet: regular caffeine: Yes Dental Care, Regularly: Yes Physical Activity Frequency: Daily Seatbelt Use: never Assistive Devices: None Review of Systems Review of Systems: All systems reviewed & are unremarkable except as noted in HPI & below Physical Exam Physical Exam: General: A&Ox3. NAD. Cooperative. HEENT: Atraumatic, normocephalic. Vision/hearin gintact. Pulm: CTAB A&P. -wheezes, -rales, -rhonchi. Symmetrical chest rise. No increased work of breathing. No respiratory distress. Cardiac: RRR, -mrg. Radial pulses intact and symmetrical. Abdominal: Nontender, nondistended, soft. BS present. Ext: warm, dry Results & Data Results & Data Vital Signs (Past 12 Hours) Vital Signs Temp Pulse Pulse Resp BP BP Pulse Ox 11/18/22 10:46 79 16 105/59 L 98 11/18/22 09:43 79 18 97 11/18/22 09:01 84 11/18/22 08:30 18 11/18/22 08:30 11/18/22 08:30 37.1 C 90 18 116/75 95 O2 Del Method 11/18/22 10:46 11/18/22 09:43 Room Air 11/18/22 09:01 11/18/22 08:30 11/18/22 08:30 Room Air 11/18/22 08:30 PG Care Time/CCT Total # of Minutes Spent Total Time Spent with Patient: Total time spent is greater than 50% in coordination of care (as documented) at patient's floor/unit and/or counseling patient: Coding Level of Care Code 99953 INT INP/OBS CARE 3/75MIN Diagnoses Fatigue R53.83 ROD (acute kidney injury) N17.9 Diabetes mellitus E11.9 History of total adrenalectomy E89.6 Aneurysm of right renal artery I72.2 GERD (gastroesophageal reflux disease) K21.9 HTN (hypertension) I10 Anxiety F41.9 Low back pain M54.50 Jocelyn's syndrome E24.9
--- NOTE | 2022-11-18 12:45 | Electrocardiogram Report ---
Test Reason : Blood Pressure : / mmHG Vent. Rate : 084 BPM Atrial Rate : 084 BPM P-R Int : 134 ms QRS Dur : 074 ms QT Int : 356 ms P-R-T Axes : 064 -08 069 degrees QTc Int : 420 ms Normal sinus rhythm Possible Left atrial enlargement Septal infarct , age undetermined Abnormal ECG No previous ECGs available Confirmed by Yung Henao ([id number]) on 11/18/2022 12:44:55 PM Referred By: Confirmed By:Yung Henao
[2022-11-18 12:58] LABS: Influenza A virus by PCR Negative (Neg); Influenza B virus by PCR Negative (Neg); RSV by PCR Negative (Neg); SARS CoV2 RNA(COVID-19) Ceph NEGATIVE (Negative)
[2022-11-18] MEDS ORDERED: DEXTROSE 50% 50 ML SYRINGE IV PRN (13:05)
[2022-11-18] MEDS ORDERED: GLUCOSE 10 TAB/TUBE PO PRN (13:05)
[2022-11-18] MEDS ORDERED: ACETAMINOPHEN 325 MG TAB PO PRN (13:05)
[2022-11-18] MEDS ORDERED: CARBOHYDRATES FOR HYPOGLYCEMIA PO PRN (13:05)
[2022-11-18] MEDS ORDERED: GLUCAGON FOR INJ 1 MG VIAL SQ PRN (13:05)
[2022-11-18] MEDS ORDERED: PHARMACY GLYCEMIC MGMT CONSULT PRN (13:05)
[2022-11-18] MEDS ORDERED: GLUCOSE 40% GEL 15 GM TUBE PO PRN (13:05)
[2022-11-18] MEDS ORDERED: LANTUS PER UNIT CHARGE SQ ONE (15:00)
[2022-11-18] MEDS ORDERED: GABAPENTIN 300 MG CAP PO STA (15:15)
[2022-11-18] MEDS ORDERED: HEPARIN SOD 5,000 UNIT/0.5 ML VIAL SQ STA (15:16)
[2022-11-18] MEDS ORDERED: PANTOprazole 40 MG TAB PO PRN (16:50)
[2022-11-18] MEDS: INSULIN ASPART PER UNIT CHARGE SC SCH ×2 (17:24→20:19)
[2022-11-18 18:40] LABS: Creatinine Urine Random 61.2 mg/dl; Protein Creatinine Ratio Urine 0.2 (0-0.2); Total Protein Urine Random 12.5 mg/dl (0-11.9)
[2022-11-18] MEDS: GABAPENTIN 300 MG CAP PO SCH (20:16)
[2022-11-18] MEDS: HEPARIN SOD 5,000 UNIT/0.5 ML VIAL SQ SCH (21:23)
[2022-11-19] MEDS: SODIUM CHLORIDE 0.9% 1,000 ML IV SCH ×2 (00:58→09:08)
[2022-11-19] MEDS ORDERED: ONDANSETRON INJ 2 MG/ML 2 ML VIAL IV PRN (01:53)
[2022-11-19] MEDS: HEPARIN SOD 5,000 UNIT/0.5 ML VIAL SQ SCH (05:58)
[2022-11-19] MEDS ORDERED: COSYNTROPIN 250 MCG in SYRINGE 4 ML IV SCH (08:00)
[2022-11-19] MEDS: GABAPENTIN 300 MG CAP PO SCH (09:39)
[2022-11-19] MEDS: INSULIN ASPART PER UNIT CHARGE SC SCH ×2 (10:01→12:35)
[2022-11-19 11:07] LABS: Hematocrit (blood only) 39.7 % (37.0-47.0); Hemoglobin 13.8 g/dl (12.0-16.0); Mean Corpuscular Hgb Conc 34.8 g/dL (32.0-36.0); Mean Corpuscular Volume 80.7 fL (80.0-100.0); Mean Platelet Volume 10.9 fL (9.4-12.4); Platelet Count 212 K/uL (130-400); RDW Coefficient of Variation 12.7 % (11.5-14.5); RDW Standard Deviation 37.3 fL (36.4-46.3); Red Blood Count 4.92 M/uL (4.20-5.40); White Blood Count 5.86 K/ul (4.8-10.8)
[2022-11-19 11:12] LABS: BUN Creatinine Ratio 20.2 (10-20); Calcium 9.3 mg/dl (8.6-10.3); Est GFR (Non-African American) 59.6 ml/min
[2022-11-19] MEDS ORDERED: LANTUS PER UNIT CHARGE SC SCH (11:30)
--- NOTE | 2022-11-19 11:47 | Pharmacy Report ---
Pharmacy Glycemic Short Note 2 - Date of Service November 19, 2022 - Glycemic Short BSG Results (Last 24 hours): 11/18/22 11/18/22 11/18/22 13:56 16:51 20:16 Glucose POC Glucose 146 H 228 H 122 H 11/19/22 11/19/22 07:26 10:35 Glucose 204 H POC Glucose 112 H OUTPATIENT ANTIDIABETIC REGIMEN: * metformin ER 1000mg BID (reportedly not taking) * Lantus 10-50 units HS (supposed to start 11/18) * HbA1c 8.1% (10/15/22) ASSESSMENT: * Yareli is a 47 YOF admitted with chief complaint extreme fatigue and a history of type II diabetes. Pharmacy has been consulted for glycemic management. * She received 23 units of insulin yesterday of which 15 were basal * Fasting BSG elevated yesterday, basal insulin initiated at 0.1 units/kg, continue today with lunch (held this AM due to NPO status) * Novolog initiated at a weight based stress of 2 * Patient was NPO last evening for cosyntropin cortisol stimulation test, no other stressors noted at this time. PLAN FOR INPATIENT GLYCEMIC CONTROL: * Hold outpatient oral diabetes medications * Basal insulin * Lantus 15 units daily * Bolus insulin * NovoLog per scale ACHS or Q6hrs while NPO * Goal Range: Low 110 mg/dL - High 140 mg/dL * Correction Factor: 20 mg/dL/unit * Nutritional / Prandial insulin per carb ratio of 1 unit per 6 grams CHO consumed
--- NOTE | 2022-11-19 12:19 | Discharge Summary ---
Date of Service November 19, 2022 Admission HPI Per Admitting Provider Yareli is a 47-year-old female with a past medical history of DM 2, Jocelyn's, GERD, anxiety, hypertension, hepatic steatosis, right adrenal adenoma s/p surgical excision with benign pathology who presents to the ER with dizziness. Mon-Tues felt severe fatigue. Adrenalectomy in 2019 and 'feels like that all over again like when my cortisol was low.' Has similar episodes of tiredness last few years which seem to go away within a day or so and drinking water. This time 'knocked me out for 3 days' and kidney numbers are up so came in. Worked last night and was increadibly fatigued. Peed 500cc urine early. Last 3 days has been peeing 'a lot, a lot more than normal. Been so thirsty been drinking a ton.' Was going to hold Jardiance and was going to start insulin today. Couldnt tolerate metformin due to stomach upset. No burning with urination. No fevers/chills/sweats No chest pain or chest pressure but did feel some slight palpitations last night which improved No vomiting, endorses nausea and mild dry heaves No diarrhea No leg swelling Last time she was on steroids was end of 2019, none in the last in 3 years. Was on hydrocortisone after adrenalectomy. Was going to start atorvastatin but has not yet, is currently on hold. Hydrocortisone 'hold' prescription remains on med list to keep providers aware of her history, but this has not been taken in almost 3 years. Pending enrollment with [facility], has not seen yet. No cough, no shortness of breath Medical History: Reviewed Medications: Reviewed Surgical History: Reviewed Family history: Reviewed Allergies: Reviewed Social History: Former smoker, quit 6 years ago. No ETOH in 8 months, social drinker prior. Medical marijuana --> uses flower, no vaping. Uses for pain ~1x/week. NO hx of seizures Code Status: Full Code Principal Diagnosis pre-renal ROD Discharge Exam General: A&Ox3. NAD. Cooperative. HEENT: Atraumatic, normocephalic. Pulm: CTAB A&P. Cardiac: RRR, Normal S1 S2 Abdominal: Nontender, nondistended, soft. BS present. Ext: warm, dry Discharge Data Allergies Allergy/AdvReac Type Severity Reaction Status Date / Time metformin AdvReac Intermediate Diarrhea Verified 10/11/23 10:26 acetaminophen [From Percocet] AdvReac Mild itching Verified 11/17/22 10:26 oxycodone [From Percocet] AdvReac Mild itching Verified 11/17/22 10:26 Consultations 11/18/22 11:40 ED Decision to Admit Stat Ordered Studies 11/18/22 10:08 CT abd pelvis wo con Stat Hospital Course (1) Fatigue: Fatigue, nausea without vomiting Likely from dehydration. MUltiple factors Patient reports she was having severe polydipsia, poydipsia and polyphagia which was likely from her uncontrolled diabetes. Patient was also having diarrhea which likley precipitated this event when she was taking metforming. Patient also was on Jardiance, which would make her urinate more, but at this moment, I do not feel this is the main culprit. Would recommend perhaps in a week or two, once her kidney numbers had shown stability, to perhaps perform a retrial on Jardiance, if PCP is agreeable. Patient responded to IVF and creatinine improved back to normal levels. Patient will be discharged on 15 units of insulin. (2) ROD (acute kidney injury): ROD Stage 2 - Non-oliguric Baseline creatinine ~1, admitting creatinine 2.77 As above. will cut back her lisinopril to 20 mg PO PM, and add amlodipine 2.5 mg PO PM. Given that BP meds have more adverse effects at higher dose, it is preferable to be on lower doses of multiple medications. This should no longer be a problem given that she has no insurance, I relayed side effects such as lower leg swelling, though lower dose and derrick inh/CCb combination should limit this. (3) Diabetes mellitus: DM2 Intolerant of metformin due to GI symptoms - No jardiance since tuesday. D/cristiano - Bicarb wnl will discharge on Lantus 15 units. (4) History of total adrenalectomy: No longer on steroids for the last 2-3 years, random cortisol within normal range Potassium is normal, mildly hypotensive Stimulation test pending, patient feeling better after fluid resuscitation. - Continue [facility] [place]. (5) Aneurysm of right renal artery: Stable, no change on repeat CT (6) GERD (gastroesophageal reflux disease): - No sx on admit. PPI daily (7) HTN (hypertension): Mildly hypotensive, lisinopril held for ROD (8) Anxiety: Adequately controlled at bedside (9) Low back pain: Chronic lumbar back pain without lower extremity weakness or bowel/bladder symptoms Patient reports continues to have her baseline back pain which is little worse since she has not been taking her gabapentin this week Gabapentin resumed, dose reduced by 50% --> 300 mg 3 times daily based on creatinine clearance. AT discharge, will resume regular dose. (10) [place]'s syndrome: History of Jocelyn's Declined to follow with [facility] endocrinology, agreeable to follow-up with [facility] Endocrinology. 11/17/2022 was seen by PCP. Patient was pending referral for cosyntropin test and endocrine follow-up, but was noted that she will need to be free of steroid injections and oral steroids. Total Time Total Time Spent Total Time Spent (In Minutes): 32 Discharge Plan Discharge Items Patient Disposition: Home - Self-Care Reason For Visit: ROD Discharge Diagnosis: ROD Activity: Resume your previous activity Non-emergency contact: Primary Care Provider Call non-emergency contact if: you have any medication questions Follow-up/Referrals: Jd Fleming MD [Primary Care Provider] - 11/24/22 10:45 am (Appointment is with PA instead) Diet: Carb Consistent or DM2 Addtl Attending Provider Instructions: Good afternoon Mrs. Rodriguez, Recommend close followup with your PCP within the next week. I think this episode of acute kidney injury was due to a multitude of factors. Diarrhea/water loss from metformin Uncontrolled blood sugars leading to urinary loss. Max dose of lisinopril which put stress on your kidneys. Jardiance may have also played a role too. We will cut back on your lisinopril to 20 mg in the evening and will add amlodipine 2.5 mg in the evening. Hold off the Jardiance in the short term, but this may be retried in about 2 weeks once your numbers stabilized. I you have a bunch of 40 mg tablets, you could cut them in half. However, I will send over 20 mg tablets to your pharmacy if needed. Ozempic may be a good medication to trial down the line as well. It was a pleasure taking care of you and I hope you continue doing well on your journey. Enjoy your weekend. Lucho Saborio Pending Studies at Discharge: No Stand-Alone Forms: [facility], Work/School Release, Smoking Royal sation Medications and DC Order Prescriptions: New amlodipine 2.5 mg tablet 2.5 mg PO PM Qty: 30 0RF Continued gabapentin 600 mg tablet 600 mg PO TID Qty: 90 5RF ondansetron HCl 4 mg tablet 4 mg PO DAILY PRN (Reason: nausea and vomiting) Qty: 90 0RF insulin glargine [Lantus Solostar U-100 Insulin] 100 unit/mL (3 mL) insulin pen 10 - 50 unit subcut DAILY Qty: 15 1RF Patient Comments: Per pt she was to start this today 11/18/22 Rx Instructions: as directed cholecalciferol (vitamin D3) 2,000 unit tablet 2,000 units PO QAM hydrocortisone 10 mg tablet 2.5 mg .ROUTE .COMPLEX PRN (Reason: to have enough cortisol) Hold Instructions: no longer takes Rx Instructions: 2.5 mg PRN; lisinopril 40 mg tablet 40 mg PO QAM Qty: 90 1RF atorvastatin 10 mg tablet 0 mg PO DAILY Rx Instructions: Per pt this is currently on hold omeprazole 20 mg capsule,delayed release(DR/EC) 20 mg PO QAM PRN (Reason: Heartburn) Patient Comments: takes once or twice a week, weening off of it. No Action (DME) pen needle, diabetic [BD Ultra-Fine Nithya Pen Needle] 32 gauge x 5/32" needle See Rx Instructions .Route Qty: 100 1RF Rx Instructions: As directed to inject insulin once a day Discharge Orders: Discharge Order (Routine); Ordered 11/19/22 Ordered By: Lucho Vallejo/Other Patient Handouts: Managing Type 2 Diabetes Admission Data Admit Date/Time: 11/18/22 13:06 Attending Provider: Lucho Spann Admit Provider: Manny Sesay Primary Care Provider: Jd Fleming V. 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
== END 2022-11-19 13:53 | disposition home or self-care (01) | DRG 683 ==
LOC: ED 08:27 → 3W 13:06 → SUATTDRO 13:06 → 3W 16:21